=== PATIENT | female | born 1995 | race Caucasian/White ===

== ENCOUNTER → 2020-12-28 07:32 | Observation (INO) | END | disposition home or self-care (01) | LOC: 1NENULAB | PROVIDERS: ADMIT Advanced Practice Midwife; ATTEND Advanced Practice Midwife ==

== ENCOUNTER 2020-12-28 23:12 | Inpatient (IN) ==
[2020-12-28] MEDS ORDERED: Naloxone 0.4 MG/ML INJ IVP PRN (23:31)
[2020-12-28] MEDS ORDERED: *HR* FentaNYL (PF) 100 MCG/2 ML VIAL IVP PRN (23:31)
[2020-12-28] MEDS ORDERED: Azithromycin 500 MG in 0.9 % Sodium Chloride 250 ML IVPB PRN (23:31)
[2020-12-28] MEDS ORDERED: Ondansetron 4 MG/2 ML VIAL IVP PRN (23:31)
[2020-12-28] MEDS ORDERED: Metoclopramide 10 MG/2 ML VIAL IVP PRN (23:31)
[2020-12-28] MEDS ORDERED: Famotidine 20 MG/2 ML VIAL IVP PRN (23:31)
[2020-12-28] MEDS ORDERED: *HR* Nalbuphine 10 MG/ML AMPUL IV PRN (23:31)
[2020-12-28] MEDS ORDERED: Lidocaine 1% 20 ML MDV INFILT PRN (23:31)
[2020-12-28] MEDS ORDERED: Ringers Solution, Lactated 1,000 ML IVC SCH (23:45)
[2020-12-29 00:17] LABS: Basophils % 0.2 %; Eosinophils % 0.2 %; Hematocrit 34.6 % (35.3-44.9); Hemoglobin 12.1 g/dL (11.5-15.4); Immature Granulocytes % 0.3 % (0-4); Lymphocytes # 1.9 K/mcL (0.6-4.6); Lymphocytes % 14.4 %; Mean Corpuscular Hemoglobin 31.7 pg (28.0-33.3); Mean Corpuscular Volume 90.6 fL (83.0-100.0); Mean Platelet Volume 10.2 fL (9.4-12.4); Monocytes # 0.7 K/mcL (0.0-1.3); Monocytes % 5.3 %; Neutrophils # 10.3 K/mcL (1.6-8.9); Platelet Count 284 K/mcL (140-400); Red Blood Count 3.82 M/mcL (3.82-4.97); Segmented Neutrophils % 79.6 %; White Blood Count 12.9 K/mcL (4.3-11.1)
[2020-12-29 00:20] LABS: Amphetamine Screen,Urine Negative ng/mL (Cutoff=1000); Barbiturate Screen,Urine Negative ng/mL (Cutoff=200); Benzodiazepines Screen,Urine Negative ng/mL (Cutoff=200); Cannabinoid Screen,Urine Negative ng/mL (Cutoff = 50); Cocaine Screen,Urine Negative ng/mL (Cutoff= 300); Opiate Screen,Urine Negative ng/mL (Cutoff=300); Phencyclidine Screen,Urine Negative ng/mL (Cutoff=25)
[2020-12-29] MEDS ORDERED: Oxytocin 20 units/ LR 1000 mL 20 UNIT/1,000 ML BAG IVC SCH (08:29)
[2020-12-29] MEDS ORDERED: *HR* HYDROcodone/Acet 5/325 mg TABLET PO PRN (08:29)
[2020-12-29] MEDS ORDERED: Rho Immune Globulin 1,500 UNIT SYRINGE IM PRN (08:29)
[2020-12-29] MEDS ORDERED: Lanolin 7 G OINT...G. TP PRN (08:29)
[2020-12-29] MEDS ORDERED: Acetaminophen 325 MG TABLET PO PRN (08:29)
[2020-12-29] MEDS ORDERED: Benzocaine/Menthol 56 GM AEROSOL SPRAY TP PRN (08:29)
[2020-12-29] MEDS: Ibuprofen 600 MG TABLET PO PRN ×2 (09:16→20:19)
[2020-12-29] MEDS: Prenatal Vit/FA 1 EACH TABLET PO SCH (11:14)
[2020-12-30 05:59] LABS: Basophils % 0.2 %; Eosinophils # 0.1 K/mcL (0.0-0.6); Eosinophils % 1.1 %; Hematocrit 24.9 % (35.3-44.9); Hemoglobin 8.3 g/dL (11.5-15.4); Immature Granulocytes % 0.5 % (0-4); Lymphocytes % 18.8 %; Mean Corpuscular HGB Conc 33.3 g/dL (31.6-35.5); Mean Corpuscular Hemoglobin 31.4 pg (28.0-33.3); Mean Corpuscular Volume 94.3 fL (83.0-100.0); Mean Platelet Volume 10.4 fL (9.4-12.4); Monocytes # 0.8 K/mcL (0.0-1.3); Monocytes % 7.2 %; Neutrophils # 7.8 K/mcL (1.6-8.9); Platelet Count 200 K/mcL (140-400); Red Blood Count 2.64 M/mcL (3.82-4.97); Red Cell Distribution Width 14.2 % (11.5-14.5); Segmented Neutrophils % 72.2 %; White Blood Count 10.8 K/mcL (4.3-11.1)
[2020-12-30 07:55] VITALS: BP 110/66; PULSE 92; TEMP 98.3; O2SAT 97
[2020-12-30] MEDS: Ibuprofen 600 MG TABLET PO PRN (09:30)
[2020-12-30] MEDS: Prenatal Vit/FA 1 EACH TABLET PO SCH (09:31)
== END 2020-12-30 15:03 | disposition home or self-care (01) | DRG 806 ==
LOC: 1NENULAB → 1NENUOBS 12-29 10:14
PROVIDERS: ADMIT Advanced Practice Midwife; ATTEND Advanced Practice Midwife